=== PATIENT | female | born 1970 | race Caucasian/White ===

== ENCOUNTER → 2016-05-09 | Outpatient (CLI) | payer OTHER ==
--- NOTE | 2016-05-09 08:52 | MA ---
Screening Digital Mammogram Clinical Indications: Routine screening. Technique: Standard cephalocaudal and mediolateral oblique projections were obtained. This examinat ion was processed by the [employer] computer aided detection system. Comparison: April 2015, April 2014, February 2013 and February 2012. Breast density: D; The breast tissue is extremely dense. This may lower the sensitivity of mammograph y. Findings: CAD was reviewed. No suspicious findings are identified. Impression: Negative mammogram. BI-RADS 1. Recommendation: Routine screening is recommended in one year, as long as physical examination is chintan ign in this patient with extremely dense breast parenchyma. [facility] will send a result letter to the patient. Negative mammography should not preclude additional workup of a clinically suspicious finding. The patient's information is entered into a reminder system with a target due date for her next mammo gram.
== END ==
LOC: BMCIMAGING 08:11
DX: Z12.31 Encounter for screening mammogram for malignant neoplasm of breast (principal)
CPT/HCPCS: G0202

== ENCOUNTER 2017-01-29 15:04 | Emergency (ER) | payer OTHER ==
[2017-01-29 15:16] VITALS: BP 113/79; PULSE 99; RESP 18; TEMP 98.1; O2SAT 95
[2017-01-29] MEDS ORDERED: predniSONE 20 MG TAB PO ONE (17:01)
[2017-01-29] MEDS ORDERED: IPRATROPIUM/ALBUTEROL 3 ML DEYVIAL IH ONE (17:01)
[2017-01-29] MEDS ORDERED: ALBUTEROL 3 ML DEYVIAL IH ONE (17:01)
--- NOTE | 2017-01-29 17:04 | EDPHY ---
H & P Time Seen by Provider: 01/29/17 16:43 HPI/ROS: CHIEF COMPLAINT: Shortness of breath HISTORY OF PRESENT ILLNESS: 46-year-old woman presents with shortness of breath for the last 24 hours. She has a father with asthma and had a head cold about 2 weeks ago. Yesterday evening she was feeling short of breath and felt wheezing and when she was sitting she was okay be going up stairs she felt short of breath and dizzy. She is pretty active and hikes regularly including last week up [employer] [place]. This is a clearly a pretty severe symptom exacerbation for her. Not associated with chest pain or fever, cough or hemoptysis, leg pain or leg swelling, recent long travel or immobilization. REVIEW OF SYSTEMS: Eye: no change in vision ENT: no sore throat Cardiac: no chest pain or syncope Pulmonary: HPI Abdomen: no vomiting, diarrhea, abdominal pain Musculoskeletal: A little bit of back pain last night which is now gone Skin: no rash Neuro: no headache Constitutional: no fever : no urinary symptoms A comprehensive 10 point review of systems is otherwise negative aside from elements mentioned in the history of present illness. PAST MEDICAL HISTORY: Negative Family history: Negative for venous thromboembolism or premature coronary disease. Social history: Nonsmoker. Recent travel to [place] by airplane but nothing longer. General Appearance: Alert and conversant, cooperative. Eyes: No scleral icterus. ENT, Mouth: Normal mucous membranes. Respiratory: Bilateral expiratory wheezes with prolonged expiratory phase. However she speaks in full sentences and has normal work of breathing. Cardiovascular: Regular rate and rhythm. Gastrointestinal: Abdomen is soft and non tender. Neurological: Alert and oriented x3. Normally conversant. Face symmetric, normal movement and sensation in all extremities. Skin: Warm and dry, no rashes. No urticaria. Musculoskeletal: No leg swelling or calf tenderness. Psychiatric: Not agitated. Emergency Department course/MDM: The patient presents with reactive airway disease and has a family history of the same. Think it is unlikely she would have CHF or pulmonary embolism. Risk benefit alternatives of steroids discussed and consented. Oral prednisone 60, DuoNeb and albuterol neb, chest x-ray and EKG. 1800: Moving more air, speaking in full sentences, still little bit wheezy, wants to go home, oxygen saturation 97%. Smoking Status: Former smoker Constitutional: Initial Vital Signs Temperature (C) 36.7 C 01/29/17 15:13 Heart Rate 99 01/29/17 15:13 Respiratory Rate 18 01/29/17 15:13 Blood Pressure 113/79 01/29/17 15:13 O2 Sat (%) 95 01/29/17 15:13 O2 Delivery Mode Room Air Allergies/Adverse Reactions: No Known Allergies Allergy (Unverified 01/29/17 15:16) Home Medications: Medication Instructions Recorded Albuterol Hfa Anes Only [Proair 2 puffs IH QID #1 mdi 01/29/17 Hfa Icu (*)] predniSONE [prednisone 20mg (RX)] 40 mg PO DAILY 4 Days tab 01/29/17 Medical Decision Making - Diagnostics EKG Interpretation: 12-lead EKG interpreted by me; official reading is in trace master. My interpretation is sinus rhythm rate 79 with no ischemic changes Imaging Results: Imaging Impressions Chest X-Ray 01/29/17 17:01 Impression: Features are consistent with reactive airways' disease and/or a virally-mediated viral bronchitis, with no focal pneumonia identified. Differential Diagnosis: Differential diagnosis considered for shortness of breath including but not limited to pulmonary infectious process, COPD, asthma, pulmonary embolus and congestive heart failure. - Data Points Medications Given: Discontinued Medications Albuterol (Proventil Neb) 3 ml IH EDNOW ONE Stop: 01/29/17 17:02 Last Admin: 01/29/17 17:14 Dose: 3 ml Albuterol/Ipratropium (Duoneb) 3 ml IH EDNOW ONE Stop: 01/29/17 17:02 Last Admin: 01/29/17 17:14 Dose: 3 ml Prednisone (Prednisone) 60 mg PO EDNOW ONE Stop: 01/29/17 17:02 Last Admin: 01/29/17 17:14 Dose: 60 mg Departure - Departure Disposition: Home, Routine, Self-Care Clinical Impression: Reactive airway disease Qualifiers: Asthma severity: unspecified severity Asthma complication type: with acute exacerbation Qualified Code(s): J45.901 - Unspecified asthma with (acute) exacerbation Condition: Good Instructions: Reactive Airways Disease (ED) Referrals: Mariel Bravo MD [Primary Care Provider] - As per Instructions Prescriptions: Albuterol Hfa Anes Only [Proair Hfa Icu (*)] 2 puffs IH QID #1 mdi predniSONE [prednisone 20mg (RX)] 40 mg PO DAILY 4 Days tab
--- NOTE | 2017-01-29 17:14 | CPEKG ---
Heart Rate: 79 RR Interval: 759 P-R Interval: 156 QRSD Interval: 94 QT Interval: 348 QTC Interval: 399 P [place]: 74 QRS [place]: 72 T Wave [place]: 68 EKG Severity - NORMAL ECG - EKG Impression: SINUS RHYTHM Electronically Signed By: Paulie Lopez 29-Jan-2017 17:18:58
== END 2017-01-29 18:27 | disposition home or self-care (01) ==
DX: J45.901 Unspecified asthma with (acute) exacerbation (principal); Z87.891 Personal history of nicotine dependence

== ENCOUNTER → 2017-06-06 | Outpatient (CLI) | payer OTHER | LOC: BMCIMAGING 15:04 | PROVIDERS: ATTEND Obstetrics & Gynecology | DX: Z12.31 Encounter for screening mammogram for malignant neoplasm of breast (principal) ==

== ENCOUNTER → 2017-06-14 | Outpatient (CLI) | payer OTHER | LOC: BMCIMAGING 10:47 | PROVIDERS: ATTEND Obstetrics & Gynecology | DX: R92.8 Other abnormal and inconclusive findings on diagnostic imaging of breast (principal) ==

== ENCOUNTER → 2018-06-21 | Outpatient (CLI) | payer OTHER | LOC: BMCIMAGING 12:28 | PROVIDERS: ATTEND Obstetrics & Gynecology | DX: Z12.31 Encounter for screening mammogram for malignant neoplasm of breast (principal) ==